=== PATIENT | female | born 1960 | race Caucasian/White ===

== ENCOUNTER 2019-05-05 22:19 | Observation (INO) ==
[2019-05-05 23:03] LABS: Basophils % 0.3 %; Hematocrit 34.6 % (35.3-44.9); Hemoglobin 11.4 g/dL (11.5-15.4); Immature Granulocytes % 0.7 % (0-4); Lymphocytes # 1.4 K/mcL (0.6-4.6); Lymphocytes % 18.2 %; Mean Corpuscular HGB Conc 32.9 g/dL (31.6-35.5); Mean Corpuscular Hemoglobin 27.4 pg (28.0-33.3); Mean Corpuscular Volume 83.2 fL (83.0-100.0); Mean Platelet Volume 9.4 fL (9.4-12.4); Monocytes # 0.4 K/mcL (0.0-1.3); Monocytes % 5.2 %; Neutrophils # 5.7 K/mcL (1.6-8.9); Nucleated Red Blood Cells 0.4 /100 WBC (0); Platelet Count 255 K/mcL (140-400); Red Blood Count 4.16 M/mcL (3.82-4.97); Red Cell Distribution Width 18.4 % (11.5-14.5); Segmented Neutrophils % 75.6 %; White Blood Count 7.5 K/mcL (4.3-11.1)
[2019-05-05 23:09] LABS: INR 0.9; Prothrombin Time 10.3 Seconds (9.4-12.1)
[2019-05-05 23:24] LABS: BUN/Creatinine Ratio 23 (6-26); Blood Urea Nitrogen 18 mg/dL (6-20); Calcium 9.5 mg/dL (8.6-10.3); Carbon Dioxide 24 mEq/L (23-29); Chloride 105 mEq/L (98-107); Glucose 308 mg/dL (70-105); Osmolality,Calculated 306 (280-300); Potassium 3.8 mEq/L (3.5-5.1); Sodium 141 mEq/L (136-145); eGFR For African Americans > 60 (> 60); eGFR For Non-African Americans > 60 (> 60)
[2019-05-06] MEDS ORDERED: Naloxone 0.4 MG/ML INJ IVP PRN (06:01)
[2019-05-06] MEDS ORDERED: Dextrose Gel 15 GM/37.5 ML TUBE PO PRN ×2 (07:53)
[2019-05-06] MEDS ORDERED: *HR* Dextrose 50 % in Water (Syg) 50 ML SYRINGE IVP PRN (07:53)
[2019-05-06] MEDS ORDERED: D5% in Water 1,000 ML IVC PRN (07:53)
[2019-05-06] MEDS ORDERED: hydroCHLOROthiazide 25 MG TABLET PO SCH (09:15)
[2019-05-06] MEDS: Insulin LISPRO 300 UNITS/3 ML VIAL SQ SCH ×2 (12:01→15:00)
[2019-05-06] MEDS ORDERED: Metoprolol XL (24 HR) Succ 50 MG TAB.ER.24H PO SCH (14:06)
[2019-05-06 16:04] VITALS: BP 134/94
[2019-05-06] MEDS ORDERED: Insulin LISPRO 300 UNITS/3 ML VIAL SQ SCH (21:00)
[2019-05-07] MEDS ORDERED: Metoprolol XL (24 HR) Succ 50 MG TAB.ER.24H PO SCH (09:00)
[2019-05-07] MEDS ORDERED: Fluticasone Propionate Nasal 50 MCG/SPRAY BOTTLE NS SCH (09:00)
[2019-05-07] MEDS ORDERED: Loratadine 10 MG TABLET PO SCH (09:00)
[2019-05-07] MEDS ORDERED: Multivit/Ca/Min/Fe/FA 1 TAB TABLET PO SCH (09:00)
== END 2019-05-06 18:00 | disposition home or self-care (01) ==
LOC: EMEROOARM 22:19 → 2NENU 22:19 → SUATTDRO 05-06 01:16 → 2NENU 05-06 01:32
PROVIDERS: ADMIT Internal Medicine; ATTEND Internal Medicine